=== PATIENT | male | born 1975 | race Hispanic/Latino ===

== ENCOUNTER 2021-04-01 11:44 | Emergency (ER) | payer BC ==
[2021-04-01] MEDS ORDERED: Dexamethasone 10 MG/ML VIAL ONE (16:31)
[2021-04-01] MEDS ORDERED: Famotidine 20 MG TAB ONE (16:33)
== END 2021-04-01 20:22 | disposition home or self-care (01) ==
LOC: CSHERS 11:44
DX: B65.3 Cercarial dermatitis (principal); E11.9 Type 2 diabetes mellitus without complications
CPT/HCPCS: 99282; J1100

== ENCOUNTER 2021-04-11 13:18 | Inpatient (IN) | payer BC ==
[2021-04-11 14:30] LABS: Actual Bicarbonate (HCO3v) 12 mEq/L (22-28); Base Excess -16.7 mEq/L (-2.0 to +3.0); Calcium, Ionized (venous) 1.17 mmol/L (1.16-1.32); Chloride (VBG) 103 mmol/L (98-106); Hemoglobin (Hb) 16.8 g/dL (13.2-17.3); Potassium (VBG) 4.49 mmol/L (3.70-5.30); Puncture Site Other Site; Sodium 137.4 mmol/L (133-146); pH (venous) 7.13 (7.32-7.43)
[2021-04-11 14:33] LABS: #Basophils 0.1 10x3/uL (0.0-0.2); #Eosinphils 0.1 10x3/uL (0.0-0.5); #Monocytes 0.7 10x3/uL (0.0-1.1); #Neutrophils 8.1 10x3/uL (1.5-8.4); %Basophils 0.6 % (0.0-2.0); %Eosinophils 0.7 % (0.0-6.0); %Lymphocytes 16.5 % (18.0-47.0); %Monocytes 6.6 % (0.0-10.0); %Neutrophils 74.8 % (40.0-75.0); Hemoglobin 16.3 g/dL (13.5-17.5); Mean Corpuscular HGB CONC 32.7 g/dL (32.0-36.0); Mean Corpuscular Hemoglobin 27.8 pg (27.0-33.0); Mean Platelet Volume 11.5 fl (7.4-10.4); Platelet Count 232 10x3/uL (150-450); RBC Distribution Width 13.5 % (11.5-14.5); Red Blood Cell (RBC) Count 5.87 10x6/uL (4.32-5.72); White Blood Cell (WBC) Count 10.8 10x3/uL (3.5-10.5)
[2021-04-11] MEDS ORDERED: INSULIN REGULAR IN 0.9 % NACL 100 UNIT/100 ML BAG ONE (14:47)
[2021-04-11 14:49] LABS: ALT (SGPT) 19 U/L (8-55); AST (SGOT) 9 U/L (5-34); Albumin 4.3 g/dL (3.5-5.0); Alkaline Phosphatase 175 U/L (40-110); Anion Gap 27 mmol/L (10-20); BUN (Urea Nitrogen) 14 mg/dL (8.9-20.6); Bilirubin, Total 0.6 mg/dL (0.2-1.2); Calc. Creatinine Clearance 0 mL/min (70-130); Calcium 9.1 mg/dL (7.8-10.44); Carbon Dioxide 10 mmol/L (22-29); Chloride 104 mmol/L (98-107); Globulin 3.8 g/dL (2.4-3.5); Glucose 417 mg/dL (70-105); Potassium 4.8 mmol/L (3.5-5.1); Protein, Total 8.1 g/dL (6.0-8.3); Sodium 136 mmol/L (136-145)
[2021-04-11] MEDS ORDERED: Ondansetron PF 4 MG/2 ML Vial IVP PRN (15:21)
[2021-04-11] MEDS ORDERED: HYDROcodone/Acetaminophen 7.5/325 mg Tablet PO PRN (15:21)
[2021-04-11] MEDS ORDERED: Ondansetron ODT 4 MG TAB PO PRN (15:21)
[2021-04-11] MEDS ORDERED: NS 0.9% w/ 20 MEQ KCL 1,000 ML IV PRN ×2 (15:21)
[2021-04-11] MEDS ORDERED: Calcium Carbonate 500 MG ChewTAB PO PRN (15:21)
[2021-04-11] MEDS ORDERED: Senokot S 8.6-50 MG TAB PO PRN (15:21)
[2021-04-11] MEDS ORDERED: Bisacodyl 5 MG TAB PO PRN (15:21)
[2021-04-11] MEDS ORDERED: Electrolyte Replacement Protocol 1 EACH IVPB PRN (15:21)
[2021-04-11] MEDS ORDERED: Acetaminophen 325 MG TAB PO PRN (15:21)
[2021-04-11] MEDS ORDERED: Sodium Chloride 0.9% 1,000 ML IV PRN ×4 (15:21)
[2021-04-11] MEDS ORDERED: Dextrose 5 %-0.45 % NaCl 1,000 ML IV PRN (15:21)
[2021-04-11 15:44] LABS: Bilirubin Neg (Negative); Blood, Urine 25 (Negative); Clarity Clear (Clear); Glucose, Urine (Dipstick) >=1000 mg/dL (Negative); Ketone, Urine 150 mg/dL (Negative); Leukocyte Negative (Negative); Nitrite Negative (Negative); Protein, Urine (Dipstick) 30 mg/dl (Neg-Trace); Urobilinogen Normal mg/dL (Less than 2)
[2021-04-11 16:01] LABS: SARS-CoV-2 NAA Rapid Test DETECTED (NotDetected)
[2021-04-11 16:03] LABS: Anion Gap 22 mmol/L (10-20); BUN (Urea Nitrogen) 13 mg/dL (8.9-20.6); Calc. Creatinine Clearance 0 mL/min (70-130); Calcium 8.8 mg/dL (7.8-10.44); Carbon Dioxide 12 mmol/L (22-29); Chloride 106 mmol/L (98-107); Glucose 326 mg/dL (70-105); Magnesium 1.8 mg/dL (1.6-2.6); Phosphorus 3.1 mg/dL (2.3-4.7); Potassium 4.2 mmol/L (3.5-5.1); Sodium 136 mmol/L (136-145)
[2021-04-11 16:20] LABS: Bacteria/HPF Rare-Few HPF (None Seen); RBC/HPF 0-3 HPF (0-3); Squamous Epithelial 0-3 HPF (0-3); WBC/HPF 0-3 HPF (0-3)
[2021-04-11 16:27] VITALS: BMI 34.6
[2021-04-11 16:29] VITALS: TEMP 98.3
[2021-04-11] MEDS ORDERED: INSULIN REGULAR IN 0.9 % NACL 100 UNIT in Premix Bag 1 BAG IVPB SCH (17:30)
[2021-04-11] MEDS ORDERED: Magnesium 2 GM/50 ML 2 GM in Premix Bag 1 BAG IVPB SCH (18:00)
[2021-04-11 19:59] LABS: Anion Gap 16 mmol/L (10-20); BUN (Urea Nitrogen) 12 mg/dL (8.9-20.6); Calc. Creatinine Clearance 133 mL/min (70-130); Calcium 9.1 mg/dL (7.8-10.44); Carbon Dioxide 13 mmol/L (22-29); Chloride 111 mmol/L (98-107); Glucose 121 mg/dL (70-105); Potassium 3.4 mmol/L (3.5-5.1); Sodium 137 mmol/L (136-145)
[2021-04-11] MEDS ORDERED: Famotidine/PF 20 mg/2ml Vial SLOW IVP SCH (21:00)
[2021-04-11] MEDS ORDERED: Famotidine 20 MG TAB PO SCH (21:00)
[2021-04-11] MEDS: Famotidine 20 MG TAB PO SCH (21:20)
[2021-04-11] MEDS: D5 1/2 NS w/20 mEq KCL 1,000 ML IV PRN (21:32)
[2021-04-11] MEDS ORDERED: Melatonin 3 MG TAB PO SCH (23:15)
[2021-04-12 00:02] LABS: Anion Gap 17 mmol/L (10-20); BUN (Urea Nitrogen) 11 mg/dL (8.9-20.6); Calc. Creatinine Clearance 139 mL/min (70-130); Calcium 8.2 mg/dL (7.8-10.44); Carbon Dioxide 14 mmol/L (22-29); Chloride 109 mmol/L (98-107); Glucose 206 mg/dL (70-105); Potassium 3.9 mmol/L (3.5-5.1); Sodium 136 mmol/L (136-145)
[2021-04-12] MEDS: D5 1/2 NS w/20 mEq KCL 1,000 ML IV PRN ×2 (01:27→05:58)
[2021-04-12 05:08] LABS: Actual Bicarbonate (HCO3v) 14 mEq/L (22-28); Base Excess -10.4 mEq/L (-2.0 to +3.0); Calcium, Ionized (venous) 1.14 mmol/L (1.16-1.32); Chloride (VBG) 107 mmol/L (98-106); Hemoglobin (Hb) 16.4 g/dL (13.2-17.3); Potassium (VBG) 3.52 mmol/L (3.70-5.30); Puncture Site Other Site; RapidComm Collect By lab; Sodium 134.4 mmol/L (133-146); pH (venous) 7.31 (7.32-7.43)
[2021-04-12 05:44] LABS: ALT (SGPT) 14 U/L (8-55); AST (SGOT) 11 U/L (5-34); Albumin 3.6 g/dL (3.5-5.0); Alkaline Phosphatase 138 U/L (40-110); Anion Gap 13 mmol/L (10-20); BUN (Urea Nitrogen) 11 mg/dL (8.9-20.6); Bilirubin, Total 0.5 mg/dL (0.2-1.2); Calc. Creatinine Clearance 134 mL/min (70-130); Calcium 8.6 mg/dL (7.8-10.44); Carbon Dioxide 15 mmol/L (22-29); Chloride 111 mmol/L (98-107); Globulin 3.3 g/dL (2.4-3.5); Glucose 206 mg/dL (70-105); Potassium 3.5 mmol/L (3.5-5.1); Protein, Total 6.9 g/dL (6.0-8.3); Sodium 135 mmol/L (136-145)
[2021-04-12 05:51] LABS: #Basophils 0.1 10x3/uL (0.0-0.2); #Eosinphils 0.4 10x3/uL (0.0-0.5); #Monocytes 0.9 10x3/uL (0.0-1.1); #Neutrophils 8.1 10x3/uL (1.5-8.4); %Basophils 0.6 % (0.0-2.0); %Eosinophils 3.1 % (0.0-6.0); %Lymphocytes 21.3 % (18.0-47.0); %Monocytes 7.4 % (0.0-10.0); %Neutrophils 67.2 % (40.0-75.0); Hemoglobin 15.5 g/dL (13.5-17.5); Mean Corpuscular HGB CONC 33.5 g/dL (32.0-36.0); Mean Corpuscular Hemoglobin 27.8 pg (27.0-33.0); Mean Corpuscular Volume 82.8 fl (81.2-95.1); Mean Platelet Volume 11.7 fl (7.4-10.4); Platelet Count 198 10x3/uL (150-450); RBC Distribution Width 13.4 % (11.5-14.5); Red Blood Cell (RBC) Count 5.58 10x6/uL (4.32-5.72); White Blood Cell (WBC) Count 12.1 10x3/uL (3.5-10.5)
[2021-04-12] MEDS ORDERED: Dextrose 50% Abboject 50 ML SYRINGE SLOW IVP PRN (08:17)
[2021-04-12] MEDS ORDERED: Dextrose 5% in Water 1,000 ML IV PRN (08:17)
[2021-04-12] MEDS: Lantus 1000 UNITS/10 ML VIAL SC SCH (09:50)
[2021-04-12] MEDS: Famotidine 20 MG TAB PO SCH ×2 (09:50→20:26)
[2021-04-12] MEDS: Enoxaparin Sodium 40 MG/0.4 ML SYRINGE SC SCH (09:50)
[2021-04-12] MEDS: HumaLOG 300 UNITS/3 ML VIAL SC PRN ×4 (10:12→20:34)
[2021-04-12 12:03] LABS: Hemoglobin A1c 13.8 % (4.0-6.0)
[2021-04-12] MEDS: Potassium Chloride 20 MEQ in Lactated Ringer's 1,000 ML IV SCH (13:49)
[2021-04-12 14:48] VITALS: BP 124/62
[2021-04-12] MEDS ORDERED: Lantus 1000 UNITS/10 ML VIAL SC SCH (21:00)
[2021-04-13] MEDS: Melatonin 3 MG TAB PO SCH ×2 (01:00→04:34)
[2021-04-13 03:50] LABS: Anion Gap 11 mmol/L (10-20); BUN (Urea Nitrogen) 7 mg/dL (8.9-20.6); Calc. Creatinine Clearance 189 mL/min (70-130); Calcium 8.1 mg/dL (7.8-10.44); Carbon Dioxide 18 mmol/L (22-29); Chloride 106 mmol/L (98-107); Glucose 251 mg/dL (70-105); Potassium 3.1 mmol/L (3.5-5.1); Sodium 132 mmol/L (136-145)
[2021-04-13 03:51] LABS: Platelet Count 140 10x3/uL (150-450)
[2021-04-13 03:52] LABS: #Basophils 0.1 10x3/uL (0.0-0.2); #Eosinphils 0.4 10x3/uL (0.0-0.5); #Monocytes 0.4 10x3/uL (0.0-1.1); #Neutrophils 2.8 10x3/uL (1.5-8.4); %Eosinophils 7.3 % (0.0-6.0); %Lymphocytes 39.1 % (18.0-47.0); %Monocytes 6.1 % (0.0-10.0); %Neutrophils 46.2 % (40.0-75.0); Hemoglobin 12.7 g/dL (13.5-17.5); Mean Corpuscular Hemoglobin 27.9 pg (27.0-33.0); Mean Corpuscular Volume 82.2 fl (81.2-95.1); Mean Platelet Volume 11.6 fl (7.4-10.4); RBC Distribution Width 13.3 % (11.5-14.5); Red Blood Cell (RBC) Count 4.55 10x6/uL (4.32-5.72)
[2021-04-13] MEDS ORDERED: Potassium Chloride 20 MEQ TAB PO SCH (04:00)
[2021-04-13] MEDS: Potassium Chloride 20 MEQ in Lactated Ringer's 1,000 ML IV SCH (05:10)
[2021-04-13] MEDS: Lantus 1000 UNITS/10 ML VIAL SC SCH (08:34)
[2021-04-13] MEDS: Famotidine 20 MG TAB PO SCH (08:34)
[2021-04-13] MEDS: Enoxaparin Sodium 40 MG/0.4 ML SYRINGE SC SCH (08:35)
[2021-04-13] MEDS: HumaLOG 300 UNITS/3 ML VIAL SC PRN ×2 (08:56→12:00)
== END 2021-04-13 12:55 | disposition home or self-care (01) | DRG 637 ==
LOC: SUATTDRO 13:18 → CSHERS 13:18 → CSHICU 16:20
PROVIDERS: ADMIT Family Medicine; ATTEND Family Medicine
PROC: 8E0ZXY6 Isolation (ICD-10-PCS; principal; 2021-04-11)
DX: E11.10 Type 2 diabetes mellitus with ketoacidosis without coma (principal); U07.1 COVID-19; E66.9 Obesity, unspecified; K21.9 Gastro-esophageal reflux disease without esophagitis; E87.6 Hypokalemia; Z79.84 Long term (current) use of oral hypoglycemic drugs; Z68.36 Body mass index [BMI] 36.0-36.9, adult
CPT/HCPCS: 36415; 36416; 71045; 80048; 80053; 81003; 81015; 82010; 82805; 83036; 83605; 83735; 83930; 83935; 84100; 84443; 84484; 85025; 87086; 93005; 96365; J1650; J1815; J3475; J3480; J7120; S0028; U0002

== ENCOUNTER 2022-05-17 20:06 | Emergency (ER) | payer BC ==
[2022-05-17 21:25] LABS: #Basophils 0.1 10x3/uL (0.0-0.2); #Eosinphils 0.8 10x3/uL (0.0-0.5); #Monocytes 0.5 10x3/uL (0.0-1.1); #Neutrophils 5.6 10x3/uL (1.5-8.4); %Eosinophils 7.8 % (0.0-6.0); %Lymphocytes 27.2 % (18.0-47.0); %Monocytes 4.6 % (0.0-10.0); %Neutrophils 56.6 % (40.0-75.0); Hemoglobin 12.2 g/dL (13.5-17.5); Mean Corpuscular Hemoglobin 27.5 pg (27.0-33.0); Mean Corpuscular Volume 80.9 fl (81.2-95.1); Platelet Count 1 10x3/uL (150-450); RBC Distribution Width 13.1 % (11.5-14.5); Red Blood Cell (RBC) Count 4.44 10x6/uL (4.32-5.72); White Blood Cell (WBC) Count 9.8 10x3/uL (3.5-10.5)
[2022-05-17 21:29] LABS: INR-International Normal Ratio 0.9; PTT 24.8 sec (22.0-33.0); Prothrombin Time 10.3 sec (9.5-12.1)
[2022-05-17 21:32] LABS: ALT (SGPT) 25 U/L (8-55); AST (SGOT) 15 U/L (5-34); Albumin 4.1 g/dL (3.5-5.0); Alkaline Phosphatase 120 U/L (40-110); Anion Gap 18 mmol/L (10-20); BUN (Urea Nitrogen) 14 mg/dL (8.9-20.6); Bilirubin, Total 0.5 mg/dL (0.2-1.2); Calc. Creatinine Clearance 0 mL/min (70-130); Carbon Dioxide 19 mmol/L (22-29); Chloride 106 mmol/L (98-107); Estimated GFR 93; Globulin 3.4 g/dL (2.4-3.5); Glucose 269 mg/dL (70-105); Potassium 3.8 mmol/L (3.5-5.1); Protein, Total 7.5 g/dL (6.0-8.3); Sodium 139 mmol/L (136-145)
[2022-05-17] MEDS ORDERED: Dexamethasone 10 MG/ML VIAL ONE (22:00)
[2022-05-17] MEDS ORDERED: Pantoprazole 40 MG VIAL ONE (22:01)
[2022-05-17 22:06] LABS: Platelet Morphology Comment Appears Decreased
[2022-05-17 22:07] LABS: Reflex for Review?? YES
[2022-05-18] MEDS ORDERED: Furosemide 40 MG/4 ML VIAL ONE (01:12)
[2022-05-18] MEDS ORDERED: Nitroglycerin 2% Ointment 1 INCH/1 GM Packet ONE ×2 (01:13→07:42)
[2022-05-18 01:14] LABS: SARS-CoV-2 NAA Rapid Test Not Detected (NotDetected)
[2022-05-18 06:05] LABS: #Basophils 0.1 10x3/uL (0.0-0.2); #Eosinphils 0.2 10x3/uL (0.0-0.5); #Monocytes 0.2 10x3/uL (0.0-1.1); #Neutrophils 8.6 10x3/uL (1.5-8.4); %Basophils 0.7 % (0.0-2.0); %Eosinophils 1.7 % (0.0-6.0); %Lymphocytes 12.1 % (18.0-47.0); %Monocytes 1.5 % (0.0-10.0); %Neutrophils 79.7 % (40.0-75.0); Hemoglobin 12.3 g/dL (13.5-17.5); Mean Corpuscular HGB CONC 33.6 g/dL (32.0-36.0); Mean Corpuscular Hemoglobin 27.3 pg (27.0-33.0); Mean Corpuscular Volume 81.2 fl (81.2-95.1); Platelet Count 2 10x3/uL (150-450); RBC Distribution Width 13.2 % (11.5-14.5); Red Blood Cell (RBC) Count 4.51 10x6/uL (4.32-5.72); White Blood Cell (WBC) Count 10.8 10x3/uL (3.5-10.5)
[2022-05-18 06:39] LABS: Platelet Morphology Comment Appears Decreased
[2022-05-18] MEDS ORDERED: Heparin 5,000 UNITS/ML VIAL ONE (07:41)
[2022-05-18] MEDS ORDERED: Furosemide 100 MG/10 ML VIAL ONE (07:42)
[2022-05-18] MEDS ORDERED: Insulin Regular 300 UNITS/3 ML VIAL ONE (11:00)
[2022-05-18] MEDS ORDERED: Albumin 25% 100 ML ONE (11:31)
[2022-05-18 16:04] LABS: #Basophils 0.1 10x3/uL (0.0-0.2); #Monocytes 0.4 10x3/uL (0.0-1.1); #Neutrophils 14.6 10x3/uL (1.5-8.4); %Basophils 0.3 % (0.0-2.0); %Eosinophils 0.1 % (0.0-6.0); %Lymphocytes 9.4 % (18.0-47.0); %Monocytes 2.2 % (0.0-10.0); %Neutrophils 85.1 % (40.0-75.0); Hemoglobin 12.2 g/dL (13.5-17.5); Mean Corpuscular HGB CONC 34.2 g/dL (32.0-36.0); Mean Corpuscular Hemoglobin 27.3 pg (27.0-33.0); Mean Corpuscular Volume 79.9 fl (81.2-95.1); Platelet Count 3 10x3/uL (150-450); RBC Distribution Width 13.2 % (11.5-14.5); Red Blood Cell (RBC) Count 4.47 10x6/uL (4.32-5.72); White Blood Cell (WBC) Count 17.2 10x3/uL (3.5-10.5)
[2022-05-18 17:11] LABS: Platelet Morphology Comment Appears Decreased
== END 2022-05-17 22:52 | disposition home or self-care (01) ==
LOC: CSHERS 20:06 → UNDOADMIN 05-18 00:32 → CSHERHOLD 05-18 00:32
DX: D69.6 Thrombocytopenia, unspecified (principal); E11.9 Type 2 diabetes mellitus without complications; Z20.822 Contact with and (suspected) exposure to COVID-19
CPT/HCPCS: 36415; 36416; 36430; 80053; 85025; 85060; 85610; 85730; 86850; 86900; 86901; 96374; 96375; 96376; C9113; J1100; P9035; U0002